=== PATIENT | male | born 1995 | race African-American/Black ===

== ENCOUNTER 2022-06-06 09:16 | Emergency (ER) | payer SELFPAY ==
[~2022-06-06] VITALS: Ht 180.3 cm; Wt 114.0 kg
[2022-06-06 09:22] VITALS: BP 143/91
== END 2022-06-06 09:56 | disposition home or self-care (01) ==
LOC: ER 09:16
DX: Z48.02 Encounter for removal of sutures (principal)
CPT/HCPCS: 99281; Z7610

== ENCOUNTER 2022-06-12 17:46 | Emergency (ER) | payer MEDICAID ==
[~2022-06-12] VITALS: Ht 180.3 cm; Wt 109.0 kg
[2022-06-12 17:54] VITALS: BP 140/96
[2022-06-12] MEDS ORDERED: MORPHINE SULFATE 10 MG/ML CPJ IM ONE (21:15)
[2022-06-13] MEDS ORDERED: IBUP-2029 MT (00:18)
[2022-06-13] MEDS ORDERED: T3 PO (00:18)
== END 2022-06-13 01:45 | disposition home or self-care (01) ==
LOC: ER 17:46
DX: S42.132A Displaced fracture of coracoid process, left shoulder, initial encounter for closed fracture (principal); Z68.33 Body mass index [BMI] 33.0-33.9, adult; V00.131A Fall from skateboard, initial encounter; Y93.51 Activity, roller skating (inline) and skateboarding; Y92.89 Other specified places as the place of occurrence of the external cause; Y99.8 Other external cause status
CPT/HCPCS: 73030; 73200; 96372; 99285; J2270; Z7610; A4565